=== PATIENT | male | born 1990 | race Caucasian/White ===

== ENCOUNTER 2021-08-20 10:16 | Emergency (ER) | payer BC ==
[~2021-08-20] VITALS: Ht 177.8 cm; Wt 94.3 kg
[2021-08-20 10:38] VITALS: BP 139/95
--- NOTE | 2021-08-20 10:38 | NUR ---
CELLULITIS/PUSTULES,FACE AND NOSE
[2021-08-20] MEDS ORDERED: AMOX/CLAVULANATE 875 MG TABLET PO ONE (11:00)
[2021-08-20] MEDS ORDERED: KETOROLAC TROMETHAMINE INJ 60 MG/2 ML VIAL IM ONE ×2 (11:00→11:07)
[2021-08-20] MEDS ORDERED: AMOX-430 PO (11:02)
[2021-08-20] MEDS ORDERED: IBUP-1957 PO (11:02)
[2021-08-20] MEDS ORDERED: AMOX/CLAVULANATE 875 MG TABLET ONE (11:08)
--- NOTE | 2021-08-20 11:34 | NUR ---
Patient discharged to home in stable condition. Written and verbal after care instructions given. Patient verbalizes understanding of instruction.
[2021-08-21] MEDS ORDERED: SULF1TAB48 PO (13:10)
[2021-08-21] MEDS ORDERED: CEPH500C2 PO (13:10)
== END 2021-08-20 11:54 | disposition home or self-care (01) ==
LOC: ER 10:19
DX: L03.211 Cellulitis of face (principal); Z88.6 Allergy status to analgesic agent
CPT/HCPCS: 96372; 99283; J1885

== ENCOUNTER 2021-08-21 10:55 | Emergency (ER) | payer BC ==
[~2021-08-21] VITALS: Ht 177.8 cm; Wt 95.3 kg
[~2021-08-21 10:55] MED LIST: AMOX-430 PO; IBUP-1957 PO
[2021-08-21 11:43] VITALS: BP 153/89
--- NOTE | 2021-08-21 11:43 | NUR ---
VISIT FOR WOUND CHECK, SEEN 3 DAYS AGO FOR FACIAL CELLULITIS
[2021-08-21] MEDS ORDERED: CEPH500C2 PO (13:10)
[2021-08-21] MEDS ORDERED: SULF1TAB48 PO (13:10)
== END 2021-08-21 13:20 | disposition home or self-care (01) ==
LOC: ER 10:57
DX: L02.01 Cutaneous abscess of face (principal); Z88.6 Allergy status to analgesic agent; Z79.1 Long term (current) use of non-steroidal anti-inflammatories (NSAID); Z79.899 Other long term (current) drug therapy